=== PATIENT | female | born 1960 | race Caucasian/White ===

== ENCOUNTER 2017-01-15 20:18 | Emergency (ER) | payer BC ==
[~2017-01-15] VITALS: Ht 177.8 cm; Wt 93.0 kg
[~2017-01-15 20:18] MED LIST: HYDR-3534 PO; HYDR200T42 PO; IBUP600 PO; PERC5TAB12 PO; PRED10 PO; TYLE500T PO
[2017-01-15 20:23] VITALS: BP 170/110; PULSE 82; RESP 16; TEMP 98.2; O2SAT 99
--- NOTE | 2017-01-15 21:41 | PD ---
HPI Chief Complaint: Hypertension Time Seen by Provider: 21:28 Travel History International Travel<30 days: No Contact w/Intl Traveler<30days: No Traveled to known affect area: No History of Present Illness HPI 56-year-old female with history of hypertension here for evaluation of elevated blood pressure and headache. Patient reports that the symptoms have been going on for last 3 days. She noted that her blood pressure at home was in the 200s over 100s. In triage it is 170/110. She has tried taking Catapres at home from a leftover prescription without improvement in blood pressure. She reports that she used to take Micardis, Norvasc, and Inderal for hypertension, however has been out of these medications a while ago. 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 Headache is diffuse, pressure-like. The patient has history of subarachnoid hemorrhage and meningitis, but states that this headache is not nearly as bad as those and is manageable with Advil. No chest pain or dyspnea. No paresthesias or motor deficits. PFSH Past Medical History Arthritis: No Asthma: No Autoimmune Disease: No Blood Disorders: No Anxiety: No Depression: No Heart Rhythm Problems: No Cancer: No Cardiovascular Problems: Yes High Cholesterol: No Chemotherapy: No Chest Pain: No Congestive Heart Failure: No COPD: No Diabetes: No Diminished Hearing: No Endocrine: No GERD: No Glaucoma: No Genitourinary: Yes Headaches: Yes Hepatitis: No Hiatal Hernia: No Hypertension: Yes Immune Disorder: Yes (seronegative arthritis) Kidney Stones: Yes Musculoskeletal: No Neurologic: Yes (Subarrachnoid hemorrhage, ANEURYSM-16 years ago) Psychiatric: No Reproductive: Yes (ENDOMETRIAL ABLATION) Respiratory: No Migraines: Yes Myocardial Infarction: No Radiation Therapy: No Renal Failure: No Sickle Cell Disease: No Sleep Apnea: No Thyroid Disease: No Ulcer: No : 4 Para: 2 Miscarriage: 3 Tubal Ligation: Yes Past Surgical History Abdominal Surgery: Yes (CHOLECYSTECTOMY) AICD: No Appendectomy: No Arteriovenous Shunt: No Cardiac Surgery: No Section: Yes Cholecystectomy: Yes Genitourinary Surgery: No Gynecologic Surgery: Yes (ENDOMETRIAL ABLATION) Insulin Pump: No Joint Replacement: No Pacemaker: No Thoracic Surgery: Yes (THORACIC OUTLET) Other Surgery: Yes (THORACIC OUTLET) Social History Alcohol Use: No Tobacco Use: No Substance Use: No Allergies-Medications (Allergen,Severity, Reaction): Coded Allergies: Compazine (Verified Allergy, Severe, "Crawling out of skin, throat does not feel right", 01/15/17) Contrast Media (Verified Allergy, Severe, Swelling, 01/15/17) Flagyl (Verified Allergy, Severe, PEELS GI TRACT, 01/15/17) Nitroglycerin (Verified Allergy, Severe, RASH, 01/15/17) NITRO PASTE Reglan (Verified Allergy, Mild, SKIN / JAW IRRITATION, 01/15/17) Uncoded Allergies: ASPERTANE (Allergy, Severe, PEELS GI TRACT, 12/09/08) Reported Meds & Prescriptions Reported Meds & Active Scripts Active Amlodipine (Amlodipine Besylate) 10 Mg Tab 10 Mg PO DAILY Review of Systems Except as stated in HPI: all other systems reviewed are Neg Physical Exam Narrative GENERAL: Well-developed, well-nourished, comfortable, no acute distress. SKIN: Warm and dry. HEAD: Atraumatic. Normocephalic. EYES: Pupils equal, round, 3 mm, reactive to light. No scleral icterus. No injection or drainage. ENT: Mucous membranes pink and moist. NECK: Trachea midline. No JVD. No nuchal rigidity. CARDIOVASCULAR: Regular rate and rhythm. Distal pulses brisk and equal bilaterally. RESPIRATORY: No accessory muscle use. Clear to auscultation. Breath sounds equal bilaterally. GASTROINTESTINAL: Abdomen soft, non-tender, nondistended. MUSCULOSKELETAL: No obvious deformities. No clubbing. No cyanosis. No edema. NEUROLOGICAL: Awake and alert. No obvious cranial nerve deficits. Motor grossly within normal limits. Normal speech. No focal deficits. PSYCHIATRIC: Appropriate mood and affect; insight and judgment normal. Data Data Last Documented VS Vital Signs Date Time Temp Pulse Resp B/P Pulse Ox O2 Delivery O2 Flow Rate FiO2 01/15/17 23:35 77 18 164/83 99 Nasal Cannula 2 01/15/17 20:23 98.2 Orders Electrocardiogram (01/15/17 21:36) Complete Blood Count With Diff (01/15/17 21:36) Comprehensive Metabolic Panel (01/15/17 21:36) Prothrombin Time / Inr (Pt) (01/15/17 21:36) Act Partial Throm Time (Ptt) (01/15/17 21:36) Ecg Monitoring (01/15/17 21:36) Iv Access Insert/Monitor (01/15/17 21:36) Oximetry (01/15/17 21:36) Sodium Chloride 0.9% Flush (Ns Flush) (01/15/17 21:45) Acetaminophen (Tylenol) (01/15/17 21:45) Amlodipine (Norvasc) (01/15/17 21:45) Ct Brain W/O Iv Contrast(Rout) (01/15/17 ) Prochlorperazine Inj (Compazine Inj) (01/15/17 21:45) Diphenhydramine Inj (Benadryl Inj) (01/15/17 22:30) Potassium Chloride (Kcl) (01/15/17 22:30) Clonidine (Catapres) (01/15/17 22:45) Epinephrine (1:1000) Inj (Adrenalin (1:1 (01/15/17 22:42) Lorazepam Inj (Ativan Inj) (01/15/17 23:00) Epinephrine (1:1000) Inj (Adrenalin (1:1 (01/15/17 23:00) Labs Laboratory Tests Test 01/15/17 21:50 White Blood Count 11.4 TH/MM3 Red Blood Count 4.68 MIL/MM3 Hemoglobin 14.1 GM/DL Hematocrit 42.3 % Mean Corpuscular Volume 90.4 FL Mean Corpuscular Hemoglobin 30.2 PG Mean Corpuscular Hemoglobin 33.4 % Concent Red Cell Distribution Width 12.6 % Platelet Count 267 TH/MM3 Mean Platelet Volume 8.7 FL Neutrophils (%) (Auto) 66.3 % Lymphocytes (%) (Auto) 22.4 % Monocytes (%) (Auto) 6.0 % Eosinophils (%) (Auto) 4.8 % Basophils (%) (Auto) 0.5 % Neutrophils # (Auto) 7.5 TH/MM3 Lymphocytes # (Auto) 2.6 TH/MM3 Monocytes # (Auto) 0.7 TH/MM3 Eosinophils # (Auto) 0.5 TH/MM3 Basophils # (Auto) 0.1 TH/MM3 CBC Comment DIFF FINAL Differential Comment Prothrombin Time 10.3 SEC Prothromb Time International 0.9 RATIO Ratio Activated Partial 27.3 SEC Thromboplast Time Sodium Level 139 MEQ/L Potassium Level 3.3 MEQ/L Chloride Level 102 MEQ/L Carbon Dioxide Level 28.1 MEQ/L Anion Gap 9 MEQ/L Blood Urea Nitrogen 15 MG/DL Creatinine 0.65 MG/DL Estimat Glomerular Filtration 95 ML/MIN Rate Random Glucose 100 MG/DL Calcium Level 8.8 MG/DL Total Bilirubin 0.5 MG/DL Aspartate Amino Transf 25 U/L (AST/SGOT) Alanine Aminotransferase 38 U/L (ALT/SGPT) Alkaline Phosphatase 69 U/L Total Protein 7.3 GM/DL Albumin 3.9 GM/DL [facility] Medical Decision Making Medical Screen Exam Complete: Yes Emergency Medical Condition: Yes Medical Record Reviewed: Yes Interpretation(s) EKG: Sinus, rate 74, left axis deviation, normal intervals, poor R-wave progression, no acute ischemic abnormality. Differential Diagnosis Elevated blood pressure, hypertensive crisis unlikely, tension headache, cluster headache, migraine headache, SAH/meningitis/encephalitis unlikely Narrative Course Initial vital signs show heart rate 82, blood pressure 170/110, pulse ox 99% on room air, oral temp of 98.2F. CBC is unremarkable. CMP is remarkable for potassium 3.3, otherwise unremarkable. CT head: No acute intracranial process. The patient was given oral Tylenol and IV Compazine for her headache. Shortly after receiving the Compazine the patient reported that he felt as she was crawling out of her skin and she felt jittery. She was given 50 mg of IV Benadryl, and shortly after this she began to complain of difficulty breathing, funny sensation in her throat, and nausea. Given the symptoms, she was given 0.3 mg of IM epinephrine. There was no tongue or lip swelling. No drooling or stridor. On reassessment after receiving IM epinephrine, the patient seemed more anxious. She was given Ativan, and on reassessment she was sleeping comfortably. She will be observed in the emergency department. Repeat vital signs show blood pressure 160s over 80s with a heart rate in the 80s. Patient is sleeping comfortably on reassessment at midnight. At midnight at the end of my shift the patient was signed out to Dr. Gleason who will continue to observe the patient in the emergency department. If the patient is feeling well and has no more adverse events, she can likely be discharged home. She is not displaying any signs or symptoms of hypertensive crisis. Diagnosis Primary Impression: Elevated blood pressure reading Additional Impression: Adverse effects of medication Qualified Code: T88.7XXA - Adverse effects of medication, initial encounter Referrals: Primary Care Physician 3 days Scripts Amlodipine 10 Mg Tab10 Mg PO DAILY #30 TAB Ref 0 Prov:Kit Del Toro MD 01/15/17 Kit Del Toro MD Jan 15, 2017 21:41
[2017-01-15] MEDS ORDERED: ACETAMINOPHEN 325 MG TAB PO ONE (21:45)
[2017-01-15] MEDS ORDERED: PROCHLORPERAZINE INJ 10 MG/2 ML VIAL IVS ONE (21:45)
[2017-01-15] MEDS ORDERED: SODIUM CHLORIDE 0.9% FLUSH 5 ML FLUSH IVF PRN (21:45)
[2017-01-15 21:50] VITALS: O2SAT 99
[2017-01-15 22:00] VITALS: BP 181/107; PULSE 85; RESP 18; O2SAT 99
[2017-01-15 22:03] LABS: AUTOMATED NEUTROPHIL # 7.5 TH/MM3 (1.8-7.7); BASOPHIL # 0.1 TH/MM3 (0-0.2); BASOPHIL % 0.5 % (0.0-2.0); EOSINOPHIL # 0.5 TH/MM3 (0-0.4); EOSINOPHIL % 4.8 % (0.0-4.0); HEMATOCRIT 42.3 % (35.0-46.0); HEMO FLAGS DIFF FINAL; LYMPH % 22.4 % (9.0-44.0); LYMPHOCYTE # 2.6 TH/MM3 (1.0-4.8); MEAN CELL VOLUME 90.4 FL (80.0-100.0); MEAN CORPUSCULAR HEMOGLOBIN 30.2 PG (27.0-34.0); MEAN CORPUSCULAR HGB CONC 33.4 % (32.0-36.0); NEUT % 66.3 % (16.0-70.0); PLATELET COUNT 267 TH/MM3 (150-450); RED BLOOD COUNT 4.68 MIL/MM3 (4.00-5.30); RED CELL DISTRIBUTION WIDTH 12.6 % (11.6-17.2); WHITE BLOOD COUNT 11.4 TH/MM3 (4.0-11.0)
[2017-01-15 22:13] LABS: CHLORIDE 102 MEQ/L (98-107); POTASSIUM 3.3 MEQ/L (3.5-5.1); SODIUM (NA) 139 MEQ/L (136-145)
[2017-01-15 22:16] LABS: ANION GAP 9 MEQ/L (5-15); BICARBONATE 28.1 MEQ/L (21.0-32.0); BLOOD UREA NITROGEN 15 MG/DL (7-18)
[2017-01-15 22:19] LABS: APTT (PATIENT) 27.3 SEC (24.3-30.1); INTERNATIONAL NORMALIZED RATIO 0.9 RATIO; PROTHROMBIN TIME - PATIENT 10.3 SEC (9.8-11.6)
--- NOTE | 2017-01-15 22:19 | RADHPO ---
EXAM DATE/TIME: 01/15/2017 21:56 [facility] COMPARISON: CT BRAIN W/O CONTRAST, March 01, 2016, 20:09. INDICATIONS : Persistent headache and hypertension. RADIATION DOSE: 58.35 CTDIvol (mGy) MEDICAL HISTORY : Hypertension. Aneurysm, intracranial. SURGICAL HISTORY : Intracranial aneurysm repair. Subarachnoid hemorrhage. ENCOUNTER: Initial ACUITY: 3 days PAIN SCALE: 6/10 LOCATION: cranial TECHNIQUE: Multiple contiguous axial images were obtained of the head. Using automated exposure control and adj ustment of the mA and/or kV according to patient size, radiation dose was kept as low as reasonably a chievable to obtain optimal diagnostic quality images. FINDINGS: CEREBRUM: The ventricles are normal for age. No evidence of midline shift, mass lesion, hemorrhage or acute in farction. No extra-axial fluid collections are seen. POSTERIOR FOSSA: The cerebellum and brainstem are intact. The 4th ventricle is midline. The cerebellopontine angle i s unremarkable. EXTRACRANIAL: The visualized portion of the orbits is intact. SKULL: The calvaria is intact. No evidence of skull fracture. CONCLUSION: No acute intracranial disease. Abraham Ma MD on January 15, 2017 at 22:17 Board Certified Radiologist. This report was verified electronically.
[2017-01-15 22:20] LABS: ALT (GPT) 38 U/L (10-53); AST (GOT) 25 U/L (15-37); GLOMERULAR FILTRATION RATE 95 ML/MIN (>89)
[2017-01-15 22:22] LABS: TOTAL BILIRUBIN ADULT 0.5 MG/DL (0.2-1.0)
[2017-01-15 22:23] LABS: ALKALINE PHOSPHATASE 69 U/L (45-117)
[2017-01-15] MEDS ORDERED: diphenhydrAMINE HCL 50 MG/ML VIAL IV PUSH ONE (22:30)
[2017-01-15] MEDS ORDERED: POTASSIUM CHLORIDE 20 MEQ CONTROLLED RELEASE TAB PO ONE (22:30)
[2017-01-15] MEDS ORDERED: EPINEPHrine HCL (1:1000) 1 MG/ML VIAL ONE (22:42)
[2017-01-15 22:45] VITALS: O2SAT 99
[2017-01-15] MEDS ORDERED: cloNIDine HCL 0.1 MG TAB PO ONE (22:45)
[2017-01-15] MEDS ORDERED: LORazepam 2 MG/ML VIAL IV PUSH ONE (23:00)
[2017-01-15] MEDS ORDERED: EPINEPHrine HCL (1:1000) 1 MG/ML VIAL IM ONE (23:00)
[2017-01-15 23:03] VITALS: BP 176/94; PULSE 79; RESP 20; O2SAT 99
[2017-01-15] MEDS ORDERED: AMLO10TA2 PO (23:18)
[2017-01-15 23:35] VITALS: BP 164/83; PULSE 77; RESP 18; O2SAT 99
[2017-01-16 00:45] VITALS: BP 168/89; PULSE 80; RESP 18; O2SAT 100
[2017-01-16 01:00] VITALS: O2SAT 97
--- NOTE | 2017-01-16 01:21 | PD ---
Physical Exam Time Seen by Provider: 01:[address] Del Toro left this patient with me to make sure the patient's symptoms resolved satisfactorily. Data Data Last Documented VS Vital Signs Date Time Temp Pulse Resp B/P Pulse Ox O2 Delivery O2 Flow Rate FiO2 01/16/17 00:45 80 18 168/89 100 Nasal Cannula 1 01/15/17 20:23 98.2 Orders Electrocardiogram (01/15/17 21:36) Complete Blood Count With Diff (01/15/17 21:36) Comprehensive Metabolic Panel (01/15/17 21:36) Prothrombin Time / Inr (Pt) (01/15/17 21:36) Act Partial Throm Time (Ptt) (01/15/17 21:36) Ecg Monitoring (01/15/17 21:36) Iv Access Insert/Monitor (01/15/17 21:36) Oximetry (01/15/17 21:36) Sodium Chloride 0.9% Flush (Ns Flush) (01/15/17 21:45) Acetaminophen (Tylenol) (01/15/17 21:45) Amlodipine (Norvasc) (01/15/17 21:45) Ct Brain W/O Iv Contrast(Rout) (01/15/17 ) Prochlorperazine Inj (Compazine Inj) (01/15/17 21:45) Diphenhydramine Inj (Benadryl Inj) (01/15/17 22:30) Potassium Chloride (Kcl) (01/15/17 22:30) Clonidine (Catapres) (01/15/17 22:45) Epinephrine (1:1000) Inj (Adrenalin (1:1 (01/15/17 22:42) Lorazepam Inj (Ativan Inj) (01/15/17 23:00) Epinephrine (1:1000) Inj (Adrenalin (1:1 (01/15/17 23:00) Labs Laboratory Tests Test 01/15/17 21:50 White Blood Count 11.4 TH/MM3 Red Blood Count 4.68 MIL/MM3 Hemoglobin 14.1 GM/DL Hematocrit 42.3 % Mean Corpuscular Volume 90.4 FL Mean Corpuscular Hemoglobin 30.2 PG Mean Corpuscular Hemoglobin 33.4 % Concent Red Cell Distribution Width 12.6 % Platelet Count 267 TH/MM3 Mean Platelet Volume 8.7 FL Neutrophils (%) (Auto) 66.3 % Lymphocytes (%) (Auto) 22.4 % Monocytes (%) (Auto) 6.0 % Eosinophils (%) (Auto) 4.8 % Basophils (%) (Auto) 0.5 % Neutrophils # (Auto) 7.5 TH/MM3 Lymphocytes # (Auto) 2.6 TH/MM3 Monocytes # (Auto) 0.7 TH/MM3 Eosinophils # (Auto) 0.5 TH/MM3 Basophils # (Auto) 0.1 TH/MM3 CBC Comment DIFF FINAL Differential Comment Prothrombin Time 10.3 SEC Prothromb Time International 0.9 RATIO Ratio Activated Partial 27.3 SEC Thromboplast Time Sodium Level 139 MEQ/L Potassium Level 3.3 MEQ/L Chloride Level 102 MEQ/L Carbon Dioxide Level 28.1 MEQ/L Anion Gap 9 MEQ/L Blood Urea Nitrogen 15 MG/DL Creatinine 0.65 MG/DL Estimat Glomerular Filtration 95 ML/MIN Rate Random Glucose 100 MG/DL Calcium Level 8.8 MG/DL Total Bilirubin 0.5 MG/DL Aspartate Amino Transf 25 U/L (AST/SGOT) Alanine Aminotransferase 38 U/L (ALT/SGPT) Alkaline Phosphatase 69 U/L Total Protein 7.3 GM/DL Albumin 3.9 GM/DL MDM Medical Record Reviewed: Yes Supervised Visit with NATALIO: Yes Differential Diagnosis Allergic reaction, hypertensive encephalopathy, anxiety, blood pressure poor control, adverse medication reaction Narrative Course It is now 118 and the patient is alert, oriented 3 with no respirator distress. The blood pressure is 168/89. The patient wants to go home. There is no evidence of hypertensive encephalopathy. Diagnosis Primary Impression: Elevated blood pressure reading Additional Impression: Adverse effects of medication Qualified Code: T88.7XXA - Adverse effects of medication, initial encounter Referrals: Primary Care Physician 3 days Additional Instruction: Dr. Del Toro wrote a prescription for amlodipine for the patient. She is to follow -up with her primary care physician. She should see her physician this week or , hopefully, early next week. Med/Other Pt SpecificInfo: Prescription(s) given Scripts Amlodipine 10 Mg Tab10 Mg PO DAILY #30 TAB Ref 0 Prov:Kit Del Toro MD 01/15/17 Disposition: 01 DISCHARGE HOME Condition: Stable Juan Francisco Gleason MD Jan 16, 2017 01:21
[2017-01-16 01:36] VITALS: BP 172/96
--- NOTE | 2017-01-16 10:51 | EKG ---
Date Performed: 01/15/2017 Time Performed: 21:43:06 PTAGE: 56 years EKG: Sinus rhythm Poor R wave progression - probable normal variant Borderline ECG PREVIOUS TRACING : 12/09/2008 19.39 Compared to prior tracing no significant change DOCTOR: Moris Sandhu Interpretating Date/Time 01/16/2017 10:50:20
== END 2017-01-16 01:40 | disposition home or self-care (01) ==
LOC: PHED 20:18
DX: I10 Essential (primary) hypertension (principal); T43.3X5A Adverse effect of phenothiazine antipsychotics and neuroleptics, initial encounter; R51 Headache
CPT/HCPCS: 70450; 80053; 85025; 85610; 85730; 93005; 96372; 96374; 96375; 99284; J0171; J0780; J1200; J2060

== ENCOUNTER 2017-08-07 13:56 | Observation (INO) | payer BC ==
[~2017-08-07] VITALS: Ht 172.7 cm; Wt 93.7 kg
[2017-08-07] VITALS (8 sets, daily range): BP systolic 128–195; BP diastolic 88–123; PULSE 65–93; RESP 16–20; TEMP 97–99; O2SAT 96–98
[~2017-08-07 13:56] MED LIST changes: +AMLO10TA2 PO; -HYDR-3534 PO; -HYDR200T42 PO; -IBUP600 PO; -PERC5TAB12 PO; -PRED10 PO; -TYLE500T PO
[2017-08-07] MEDS ORDERED: AMLO10 PO (14:33)
[2017-08-07] MEDS ORDERED: SODIUM CHLORIDE 0.9% FLUSH 10 ML FLUSH IVF PRN (14:45)
[2017-08-07] MEDS ORDERED: ASPIRIN 325 MG TAB PO ONE (14:45)
[2017-08-07] MEDS ORDERED: cloNIDine HCL 0.2 MG TAB PO ONE (14:45)
--- NOTE | 2017-08-07 14:51 | PD ---
HPI Chief Complaint: Chest Pain Time Seen by Provider: 14:32 Travel History International Travel<30 days: No Contact w/Intl Traveler<30days: No Traveled to known affect area: No History of Present Illness HPI The patient was seen and examined in the presence of the nurse. Patient complains of a pressure and fluttering in her chest. Location is center sternum. Duration one day. Symptoms severity is moderate. No alleviating factors. Patient has been under a lot of stress lately over the recent of her son. She had a stress test many years ago but nothing recently. She has hypertension and cannot recall if she took her medication today. Blood pressure is approximately 200/120. Denies significant headache. No syncope. her stress is exacerbating her symptoms. PFSH Past Medical History Arthritis: No Asthma: No Autoimmune Disease: No Blood Disorders: No Anxiety: No Depression: No Heart Rhythm Problems: No Cancer: No Cardiovascular Problems: Yes High Cholesterol: No Chemotherapy: No Chest Pain: No Congestive Heart Failure: No COPD: No Diabetes: No Diminished Hearing: No Endocrine: No GERD: No Glaucoma: No Genitourinary: Yes (Ileus) Headaches: Yes Hepatitis: No Hiatal Hernia: No Hypertension: Yes Immune Disorder: Yes (seronegative arthritis) Kidney Stones: Yes Musculoskeletal: No Neurologic: Yes (Subarrachnoid hemorrhage, ANEURYSM-16 years ago) Psychiatric: No Reproductive: Yes (ENDOMETRIAL ABLATION) Respiratory: No Migraines: Yes Myocardial Infarction: No Radiation Therapy: No Renal Failure: No Sickle Cell Disease: No Sleep Apnea: No Thyroid Disease: No Ulcer: No : 4 Para: 2 Miscarriage: 3 Tubal Ligation: Yes Past Surgical History Abdominal Surgery: Yes (CHOLECYSTECTOMY) AICD: No Appendectomy: No Arteriovenous Shunt: No Cardiac Surgery: No Section: Yes Cholecystectomy: Yes Genitourinary Surgery: No Gynecologic Surgery: Yes (ENDOMETRIAL ABLATION) Insulin Pump: No Joint Replacement: No Pacemaker: No Thoracic Surgery: Yes (THORACIC OUTLET) Other Surgery: Yes (THORACIC OUTLET, Lumpectomy on the left side.) Social History Alcohol Use: No Tobacco Use: No Substance Use: No Allergies-Medications (Allergen,Severity, Reaction): Coded Allergies: diatrizoate meglumine (Verified Allergy, Severe, Swelling, 08/07/17) 07-22-2017 during appt confirmed. gadobenic acid (Verified Allergy, Severe, Swelling, 08/07/17) 07-22-2017 during appt confirmed. gadodiamide (Verified Allergy, Severe, Swelling, 08/07/17) 07-22-2017 during appt confirmed. gadoteridol (Verified Allergy, Severe, Swelling, 08/07/17) 07-22-2017 during appt confirmed. iodixanol (Verified Allergy, Severe, Swelling, 08/07/17) 07-22-2017 during appt confirmed. iohexol (Verified Allergy, Severe, Swelling, 08/07/17) 07-22-2017 during appt confirmed. metronidazole (Verified Allergy, Severe, PEELS GI TRACT, 08/07/17) 07-22-2017 during appt confirmed. nitroglycerin (Verified Allergy, Severe, RASH, 08/07/17) NITRO PASTE 07-22-2017 during appt confirmed. prochlorperazine (Verified Allergy, Severe, "Crawling out of skin, throat does not feel right", 08/07/17) 07-22-2017 during appt confirmed. metoclopramide (Verified Allergy, Mild, SKIN / JAW IRRITATION, 08/07/17) 07-22-2017 during appt confirmed. Uncoded Allergies: ASPERTANE (Allergy, Severe, PEELS GI TRACT, 12/09/08) Reported Meds & Prescriptions Reported Meds & Active Scripts Active Amlodipine (Amlodipine Besylate) 10 Mg Tab 10 Mg PO DAILY Review of Systems General / Constitutional: No: Fever Eyes: No: Visual changes HENT: No: Headaches Cardiovascular: Positive: Chest Pain or Discomfort, Palpitations Respiratory: No: Shortness of Breath Gastrointestinal: No: Abdominal Pain Genitourinary: No: Dysuria Musculoskeletal: No: Pain Skin: No Rash Neurologic: No: Weakness Psychiatric: Positive: Anxiety, Depression Endocrine: No: Polydipsia Hematologic/Lymphatic: No: Easy Bruising Physical Exam Narrative GENERAL: Well-nourished, well-developed patient with chest pressure and fluttering . SKIN: Focused skin assessment reveals no rash and nodules. Skin is Warm and dry. HEAD: Atraumatic. Normocephalic. EYES: Pupils equal and round. No scleral icterus. No injection or drainage. ENT: No nasal bleeding or discharge. Mucous membranes pink and moist. NECK: Trachea midline. No JVD. CARDIOVASCULAR: Regular rate and rhythm. No murmur appreciated. RESPIRATORY: No accessory muscle use. Clear to auscultation. Breath sounds equal bilaterally. GASTROINTESTINAL: Abdomen soft, non-tender, nondistended. Hepatic and splenic margins not palpable. MUSCULOSKELETAL: No obvious deformities. No clubbing. No cyanosis. No edema. NEUROLOGICAL: Awake and alert. No obvious cranial nerve deficits. Motor grossly within normal limits. Normal speech. PSYCHIATRIC: Depressed mood and flat affect; insight and judgment normal. Data Data Last Documented VS Vital Signs Date Time Temp Pulse Resp B/P (MAP) Pulse Ox O2 Delivery O2 Flow Rate FiO2 08/07/17 15:52 70 16 153/95 (114) 97 Room Air 2.00 08/07/17 14:19 99.0 Orders Orders Electrocardiogram (08/07/17 14:40) Basic Metabolic Panel (Bmp) (08/07/17 14:40) Ckmb (Isoenzyme) Profile (08/07/17 14:40) Complete Blood Count With Diff (08/07/17 14:40) Magnesium (Mg) (08/07/17 14:40) Prothrombin Time / Inr (Pt) (08/07/17 14:40) Act Partial Throm Time (Ptt) (08/07/17 14:40) Troponin I (08/07/17 14:40) Chest, Single Ap (08/07/17 14:40) Ecg Monitoring (08/07/17 14:40) Iv Access Insert/Monitor (08/07/17 14:40) Oximetry (08/07/17 14:40) Aspirin (Aspirin) (08/07/17 14:45) Sodium Chloride 0.9% Flush (Ns Flush) (08/07/17 14:45) Clonidine (Catapres) (08/07/17 14:45) Labs Laboratory Tests Test 08/07/17 14:40 White Blood Count 8.1 TH/MM3 Red Blood Count 4.62 MIL/MM3 Hemoglobin 13.9 GM/DL Hematocrit 40.9 % Mean Corpuscular Volume 88.6 FL Mean Corpuscular Hemoglobin 30.0 PG Mean Corpuscular Hemoglobin Concent 33.9 % Red Cell Distribution Width 12.1 % Platelet Count 276 TH/MM3 Mean Platelet Volume 9.2 FL Neutrophils (%) (Auto) 64.1 % Lymphocytes (%) (Auto) 25.3 % Monocytes (%) (Auto) 6.4 % Eosinophils (%) (Auto) 3.4 % Basophils (%) (Auto) 0.8 % Neutrophils # (Auto) 5.2 TH/MM3 Lymphocytes # (Auto) 2.0 TH/MM3 Monocytes # (Auto) 0.5 TH/MM3 Eosinophils # (Auto) 0.3 TH/MM3 Basophils # (Auto) 0.1 TH/MM3 CBC Comment DIFF FINAL Differential Comment Prothrombin Time 10.0 SEC Prothromb Time International Ratio 0.9 RATIO Activated Partial Thromboplast Time 27.9 SEC Blood Urea Nitrogen 9 MG/DL Creatinine 0.63 MG/DL Random Glucose 94 MG/DL Calcium Level 9.3 MG/DL Magnesium Level 2.0 MG/DL Sodium Level 137 MEQ/L Potassium Level 3.7 MEQ/L Chloride Level 101 MEQ/L Carbon Dioxide Level 29.7 MEQ/L Anion Gap 6 MEQ/L Estimat Glomerular Filtration Rate 98 ML/MIN Total Creatine Kinase 46 U/L Troponin I LESS THAN 0.02 NG/ML MDM Medical Decision Making Medical Screen Exam Complete: Yes Emergency Medical Condition: Yes Medical Record Reviewed: Yes Differential Diagnosis Differential diagnosis includes MD, angina, pericarditis, pleurisy, GERD, anxiety., Hypertensive urgency Narrative Course I have reviewed the patient's electronic medical record. Patient was here in January 2017 for accelerated hypertension IV placed I reviewed the EKG which shows sinus rhythm but no ST elevation or ectopy I reviewed the chest x-ray which is normal Extended cardiac monitoring shows sinus rhythm without ectopy CBC is normal Metabolic profile is normal CK is normal Troponin is normal are normal Coagulation studies Gave her an aspirin and a dose of clonidine for accelerated hypertension Patient is neurologically intact without neurologic complaint. Repeat blood pressure 153/90 Patient having chest discomfort and has multiple risk factors. She will be a 23 hour observation on telemetry in the chest pain center to rule out cardiac cause of her symptoms. I paged the hospitalist to discuss. Diagnosis Primary Impression: Chest pain in adult Admitting Information Admitting Physician Requests: Observation Kt Nicholson MD Aug 07, 2017 14:51
[2017-08-07 14:59] LABS: AUTOMATED NEUTROPHIL # 5.2 TH/MM3 (1.8-7.7); BASOPHIL # 0.1 TH/MM3 (0-0.2); BASOPHIL % 0.8 % (0.0-2.0); EOSINOPHIL # 0.3 TH/MM3 (0-0.4); EOSINOPHIL % 3.4 % (0.0-4.0); HEMATOCRIT 40.9 % (35.0-46.0); HEMO FLAGS DIFF FINAL; LYMPH % 25.3 % (9.0-44.0); MEAN CELL VOLUME 88.6 FL (80.0-100.0); MEAN CORPUSCULAR HGB CONC 33.9 % (32.0-36.0); MONO % 6.4 % (0.0-8.0); NEUT % 64.1 % (16.0-70.0); PLATELET COUNT 276 TH/MM3 (150-450); RED BLOOD COUNT 4.62 MIL/MM3 (4.00-5.30); RED CELL DISTRIBUTION WIDTH 12.1 % (11.6-17.2); WHITE BLOOD COUNT 8.1 TH/MM3 (4.0-11.0)
[2017-08-07 15:07] LABS: CHLORIDE 101 MEQ/L (98-107); POTASSIUM 3.7 MEQ/L (3.5-5.1); SODIUM (NA) 137 MEQ/L (136-145)
[2017-08-07 15:10] LABS: ANION GAP 6 MEQ/L (5-15); BICARBONATE 29.7 MEQ/L (21.0-32.0); BLOOD UREA NITROGEN 9 MG/DL (7-18)
[2017-08-07 15:12] LABS: APTT (PATIENT) 27.9 SEC (24.3-30.1); INTERNATIONAL NORMALIZED RATIO 0.9 RATIO
[2017-08-07 15:13] LABS: GLOMERULAR FILTRATION RATE 98 ML/MIN (>89)
[2017-08-07 15:20] LABS: CREATINE KINASE 46 U/L (26-192)
--- NOTE | 2017-08-07 15:36 | RADRPT ---
EXAM DATE/TIME: 08/07/2017 15:09 [facility] COMPARISON: No previous studies available for comparison. INDICATIONS : Chest pain starting this morning. MEDICAL HISTORY : Aneurysm, intracranial. Hypertension SURGICAL HISTORY : Tubal ligation. ENCOUNTER: Initial ACUITY: 1 day PAIN SCORE: 7/10 LOCATION: Bilateral chest FINDINGS: A single view of the chest demonstrates the lungs to be symmetrically aerated without evidence of mas s, infiltrate or effusion. The cardiomediastinal contours are unremarkable. Osseous structures are intact. CONCLUSION: No acute disease. Gokul Horn MD on August 07, 2017 at 15:35 Board Certified Radiologist. This report was verified electronically.
[2017-08-07] MEDS ORDERED: ONDANSETRON HCL 4 MG/2 ML VIAL IVP PRN (16:45)
[2017-08-07] MEDS ORDERED: MAGNESIUM HYDROXIDE SUSP 30 ML CUP PO PRN (16:45)
[2017-08-07] MEDS ORDERED: MORPHINE SULFATE 4 MG/ML INJ IV PUSH PRN ×2 (16:45)
[2017-08-07] MEDS ORDERED: NALOXONE HCL 0.4 MG/ML AMP IV PUSH PRN (16:45)
[2017-08-07] MEDS ORDERED: SODIUM CHLORIDE 0.9% FLUSH 10 ML FLUSH IV FLUSH PRN (16:45)
--- NOTE | 2017-08-07 16:53 | HHI.HP ---
[facility] Primary Care Physician No Primary Care Physician Admission Diagnosis chest pain Diagnoses: (1) Hypertensive urgency Diagnosis: Principal (2) Chest pain in adult Diagnosis: Principal Travel History International Travel<30 Days: No Contact w/Intl Traveler <30 Da: No Traveled to Known Affected Are: No History of Present Illness Mrs. Ramos is a 56-year-old female. She is here today after having chest pain earlier today. For the past week she's been having palpitations off and on. Today, however, she had acute sharp pains at her right arm and center chest. Some of the pain radiated up to her right jaw. 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 She does have coronary artery disease in her family history including her father and paternal grandmother. Other possible contributors are a history of autoimmunity which include seronegative arthritis and spondylolysis and a recent loss of her son (acute grief). No chest pain is present during our interview. She's had no neurologic changes. Review of Systems Constitutional: DENIES: Fatigue, Fever, Weight loss, Chills Eyes: DENIES: Blurred vision, Diplopia, Eye inflammation, Vision loss Ears, nose, mouth, throat: DENIES: Tinnitus, Hearing loss, Vertigo Cardiovascular: COMPLAINS OF: Chest pain, DENIES: Palpitations, Syncope Gastrointestinal: DENIES: Abdominal pain, Black stools, Bloody stools Musculoskeletal: DENIES: Joint pain, Muscle aches, Stiffness Integumentary: DENIES: Abnormal pigmentation, Pruritus, Rash Hematologic/lymphatic: DENIES: Bruising, Lymphadenopathy Immunologic/allergic: DENIES: Eczema, Urticaria Neurologic: DENIES: Abnormal gait, Headache, Localized weakness, Paresthesias Psychiatric: DENIES: Anxiety, Confusion, Hallucinations Past Family Social History Past Medical History Hypertension History of migraine headaches History of ileus History of subarachnoid hemorrhage secondary to aneurysm in 2000 Seronegative Arthritis History of menometrorrhagia History of hypertensive urgency Spondylolysis Past Surgical History Cholecystectomy Thoracic outlet lumpectomy Endometrial ablation Right wrist surgery Reported Medications Reported Meds & Active Scripts Active Amlodipine (Amlodipine Besylate) 10 Mg Tab 10 Mg PO DAILY Allergies: Coded Allergies: diatrizoate meglumine (Verified Allergy, Severe, Swelling, 08/07/17) 07-22-2017 during appt confirmed. gadobenic acid (Verified Allergy, Severe, Swelling, 08/07/17) 07-22-2017 during appt confirmed. gadodiamide (Verified Allergy, Severe, Swelling, 08/07/17) 07-22-2017 during appt confirmed. gadoteridol (Verified Allergy, Severe, Swelling, 08/07/17) 07-22-2017 during appt confirmed. iodixanol (Verified Allergy, Severe, Swelling, 08/07/17) 07-22-2017 during appt confirmed. iohexol (Verified Allergy, Severe, Swelling, 08/07/17) 07-22-2017 during appt confirmed. metronidazole (Verified Allergy, Severe, PEELS GI TRACT, 08/07/17) 07-22-2017 during appt confirmed. nitroglycerin (Verified Allergy, Severe, RASH, 08/07/17) NITRO PASTE 07-22-2017 during appt confirmed. prochlorperazine (Verified Allergy, Severe, "Crawling out of skin, throat does not feel right", 08/07/17) 07-22-2017 during appt confirmed. metoclopramide (Verified Allergy, Mild, SKIN / JAW IRRITATION, 08/07/17) 07-22-2017 during appt confirmed. Uncoded Allergies: ASPERTANE (Allergy, Severe, PEELS GI TRACT, 12/09/08) Social History No alcohol abuse No smoking No illicit drug abuse Physical Exam Vital Signs Vital Signs Date Time Temp Pulse Resp B/P (MAP) Pulse Ox O2 Delivery O2 Flow Rate FiO2 08/07/17 15:52 70 16 153/95 (114) 97 Room Air 2.00 08/07/17 14:52 96 Room Air 08/07/17 14:40 98 Room Air 08/07/17 14:19 99.0 93 16 195/123 (147) 98 Physical Exam GENERAL: NAD, A&Ox3 HEAD: Normocephalic. NECK: Supple, trachea midline. No lymphadenopathy. EYES: No scleral icterus. No injection or drainage. CARDIOVASCULAR: Regular rate and rhythm without murmurs, gallops, or rubs. RESPIRATORY: Breath sounds equal bilaterally. No accessory muscle use. GASTROINTESTINAL: Abdomen soft, non-tender, nondistended. MUSCULOSKELETAL: No cyanosis, or edema. SKIN: Warm and dry. NEURO: No focal neurological deficitis. Laboratory Laboratory Tests Test 08/07/17 14:40 White Blood Count 8.1 Red Blood Count 4.62 Hemoglobin 13.9 Hematocrit 40.9 Mean Corpuscular Volume 88.6 Mean Corpuscular Hemoglobin 30.0 Mean Corpuscular Hemoglobin Concent 33.9 Red Cell Distribution Width 12.1 Platelet Count 276 Mean Platelet Volume 9.2 Neutrophils (%) (Auto) 64.1 Lymphocytes (%) (Auto) 25.3 Monocytes (%) (Auto) 6.4 Eosinophils (%) (Auto) 3.4 Basophils (%) (Auto) 0.8 Neutrophils # (Auto) 5.2 Lymphocytes # (Auto) 2.0 Monocytes # (Auto) 0.5 Eosinophils # (Auto) 0.3 Basophils # (Auto) 0.1 CBC Comment DIFF FINAL Differential Comment Prothrombin Time 10.0 Prothromb Time International Ratio 0.9 Activated Partial Thromboplast Time 27.9 Blood Urea Nitrogen 9 Creatinine 0.63 Random Glucose 94 Calcium Level 9.3 Magnesium Level 2.0 Sodium Level 137 Potassium Level 3.7 Chloride Level 101 Carbon Dioxide Level 29.7 Anion Gap 6 Estimat Glomerular Filtration Rate 98 Total Creatine Kinase 46 Troponin I LESS THAN 0.02 Result Diagram: 08/07/17 1440 08/07/17 1440 Caprini VTE Risk Assessment Caprini VTE Risk Assessment: No/Low Risk (score <= 1) Caprini Risk Assessment Model Point Value = 1 Point Value = 2 Point Value = 3 Point Value = 5 Age 41-60 Minor surgery BMI > 25 kg/m2 Swollen legs Varicose veins or History of unexplained or recurrent spontaneous Oral contraceptives or hormone replacement Sepsis (< 1 month) Serious lung disease, including pneumonia (< 1 month) Abnormal pulmonary function Acute myocardial infarction Congestive heart failure (< 1 month) History of inflammatory bowel disease Medical patient at bed rest Age 61-74 Arthroscopic surgery Major open surgery (> 45 min) Laparoscopic surgery (> 45 min) Malignancy Confined to bed (> 72 hours) Immobilizing plaster cast Central venous access Age >= 75 History of VTE Family history of VTE Factor V Leiden Prothrombin [id number] Lupus anticoagulant Anticardiolipin antibodies Elevated serum homocysteine Heparin-induced thrombocytopenia Other congenital or acquired thrombophilia Stroke (< 1 month) Elective arthroplasty Hip, pelvis, or leg fracture Acute spinal cord injury (< 1 month) Prophylaxis Regimen Total Risk Factor Score Risk Level Prophylaxis Regimen 0-1 Low Early ambulation 2 Moderate Order ONE of the following: *Sequential Compression Device (SCD) *Heparin 5000 units SQ BID 3-4 Higher Order ONE of the following medications: *Heparin 5000 units SQ TID *Enoxaparin/Lovenox 40 mg SQ daily (WT < 150 kg, CrCl > 30 mL/min) *Enoxaparin/Lovenox 30 mg SQ daily (WT < 150 kg, CrCl > 10-29 mL/min) *Enoxaparin/Lovenox 30 mg SQ BID (WT < 150 kg, CrCl > 30 mL/min) AND/OR *Sequential Compression Device (SCD) 5 or more Highest Order ONE of the following medications: *Heparin 5000 units SQ TID (Preferred with Epidurals) *Enoxaparin/Lovenox 40 mg SQ daily (WT < 150 kg, CrCl > 30 mL/min) *Enoxaparin/Lovenox 30 mg SQ daily (WT < 150 kg, CrCl > 10-29 mL/min) *Enoxaparin/Lovenox 30 mg SQ BID (WT < 150 kg, CrCl > 30 mL/min) AND *Sequential Compression Device (SCD) Assessment and Plan Problem List: (1) Chest pain in adult ICD Code: R07.9 - Chest pain, unspecified Status: Acute (2) Hypertensive urgency ICD Code: I16.0 - Hypertensive urgency Assessment and Plan Assessment and plan 56-year-old female admitted secondary to symptoms of chest pain and hypertensive urgency Chest pain Evaluate for ACS Follow cardiac enzymes When necessary oxygen When necessary morphine for pain. Avoid aspirin secondary to history of spontaneous subarachnoid hemorrhage Avoid nitroglycerin secondary to allergy Follow on telemetry Following chest pain center Lipid profile in a.m. Hypertensive urgency on hypertension As needed clonidine As needed IV enalapril Continue baseline amlodipine This condition may be contributory to the patient's chest pain Acute grief Recent loss of some Supportive care Arthritis Follow clinically History of migraine headaches Follow clinically History of subarachnoid hemorrhage Avoid blood thinners DVT prophylaxis SCDs Ayan Aldrich MD Aug 07, 2017 16:53
[2017-08-07] MEDS ORDERED: ENOXAPARIN SODIUM 40 MG/0.4 ML SYRINGE SQ SCH (17:00)
[2017-08-07] MEDS: SODIUM CHLORIDE 0.9% FLUSH 10 ML FLUSH IV FLUSH SCH (20:10)
[2017-08-08 04:00] VITALS: BP 117/77; PULSE 63; RESP 18; TEMP 96.9; O2SAT 95
[2017-08-08 07:44] LABS: CHLORIDE 103 MEQ/L (98-107); POTASSIUM 3.5 MEQ/L (3.5-5.1); SODIUM (NA) 139 MEQ/L (136-145)
[2017-08-08 07:47] LABS: ANION GAP 7 MEQ/L (5-15); BLOOD UREA NITROGEN 11 MG/DL (7-18)
[2017-08-08 07:50] LABS: ALT (GPT) 14 U/L (10-53); AST (GOT) 12 U/L (15-37); AUTOMATED NEUTROPHIL # 3.9 TH/MM3 (1.8-7.7); BASOPHIL % 0.7 % (0.0-2.0); EOSINOPHIL # 0.3 TH/MM3 (0-0.4); GLOMERULAR FILTRATION RATE 93 ML/MIN (>89); HEMATOCRIT 38.4 % (35.0-46.0); HEMO FLAGS DIFF FINAL; LYMPH % 33.2 % (9.0-44.0); LYMPHOCYTE # 2.3 TH/MM3 (1.0-4.8); MEAN CELL VOLUME 89.1 FL (80.0-100.0); MEAN CORPUSCULAR HEMOGLOBIN 29.9 PG (27.0-34.0); MEAN CORPUSCULAR HGB CONC 33.5 % (32.0-36.0); MONO % 6.1 % (0.0-8.0); PLATELET COUNT 240 TH/MM3 (150-450); RED CELL DISTRIBUTION WIDTH 12.4 % (11.6-17.2); WHITE BLOOD COUNT 6.9 TH/MM3 (4.0-11.0)
[2017-08-08 07:52] LABS: TOTAL BILIRUBIN ADULT 0.6 MG/DL (0.2-1.0)
[2017-08-08 07:53] LABS: ALKALINE PHOSPHATASE 67 U/L (45-117)
[2017-08-08 08:28] VITALS: BP 129/83; PULSE 67; RESP 18; TEMP 97.6; O2SAT 96
[2017-08-08] MEDS: SODIUM CHLORIDE 0.9% FLUSH 10 ML FLUSH IV FLUSH SCH (09:00)
[2017-08-08 09:36] LABS: HDL CHOLESTEROL 69.7 MG/DL (40.0-60.0); LDL CHOLESTEROL 110 MG/DL (0-99)
--- NOTE | 2017-08-08 11:58 | HHI.DS ---
Discharge Summary Admission Date Aug 07, 2017 at 16:06 Discharge Date: Aug 08, 2017 Admitting Diagnosis chest pain (1) Chest pain in adult ICD Code: R07.9 - Chest pain, unspecified Status: Acute (2) Hypertensive urgency ICD Code: I16.0 - Hypertensive urgency Procedures Treadmill stress test Brief History - From Admission Mrs. Ramos is a 56-year-old female. She is here today after having chest pain earlier today. For the past week she's been having palpitations off and on. Today, however, she had acute sharp pains at her right arm and center chest. Some of the pain radiated up to her right jaw. 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 She does have coronary artery disease in her family history including her father and paternal grandmother. Other possible contributors are a history of autoimmunity which include seronegative arthritis and spondylolysis and a recent loss of her son (acute grief). No chest pain is present during our interview. She's had no neurologic changes. CBC/BMP: 08/08/17 0705 08/08/17 0705 Significant Findings Laboratory Tests Test 08/07/17 14:40 08/07/17 20:30 08/08/17 00:15 08/08/17 03:10 Troponin I LESS THAN 0.02 NG/ML LESS THAN 0.02 NG/ML LESS THAN 0.02 NG/ML LESS THAN 0.02 NG/ML Test 08/08/17 07:05 Eosinophils (%) (Auto) 5.0 % (0.0-4.0) Aspartate Amino Transf (AST/SGOT) 12 U/L (15-37) Troponin I LESS THAN 0.02 NG/ML Triglycerides Level 156 MG/DL (42-150) Cholesterol Level 211 MG/DL (120-200) LDL Cholesterol 110 MG/DL (0-99) HDL Cholesterol 69.7 MG/DL (40.0-60.0) Hospital Course Mrs. Ramos is a 56 old female. She was admitted secondary to chest pain. Family history coronary artery disease is present. Workup included cardiac enzyme monitoring, EKGs, and general stress testing. All workup was within normal limits. Patient's chest pain has completely resolved. LDL cholesterol level was 110. This is discussed with the patient. She has tried statins in the past and these made her feel ill. She has no interest in statins. She feels back to baseline today. Medically stable for discharge home today. Pt Condition on Discharge: Stable Discharge Disposition: Discharge Home Discharge Time: <= 30 minutes Discharge Instructions DIET: Follow Instructions for: As Tolerated, No Restrictions Activities you can perform: Regular-No Restrictions Ayan Aldrich MD Aug 08, 2017 11:58
--- NOTE | 2017-08-08 13:45 | EKG ---
Date Performed: 08/08/2017 Time Performed: 03:05:15 PTAGE: 56 years EKG: Sinus rhythm NORMAL ECG PREVIOUS TRACING : 08/07/2017 23.50 Since previous tracing, no significant change noted DOCTOR: Jhonny Winchester Interpretating Date/Time 08/08/2017 13:45:21
--- NOTE | 2017-08-08 13:48 | EKG ---
Date Performed: 08/07/2017 Time Performed: 23:50:22 PTAGE: 56 years EKG: Sinus rhythm WITH OCCASIONAL SUPRAVENTRICULAR PREMATURE COMPLEXES BORDERLINE ECG PREVIOUS TRACING : 08/07/2017 20.27 Since previous tracing, no significant change noted DOCTOR: hJonny Winchester Interpretating Date/Time 08/08/2017 13:47:56
--- NOTE | 2017-08-08 13:53 | EKG ---
Date Performed: 08/07/2017 Time Performed: 20:27:32 PTAGE: 56 years EKG: Sinus rhythm WITH OCCASIONAL SUPRAVENTRICULAR PREMATURE COMPLEXES BORDERLINE ECG PREVIOUS TRACING : 08/07/2017 14.29 Since previous tracing, no significant change noted DOCTOR: Jhonny Winchester Interpretating Date/Time 08/08/2017 13:52:26
--- NOTE | 2017-08-08 13:58 | EKG ---
Date Performed: 08/07/2017 Time Performed: 14:29:08 PTAGE: 56 years EKG: Sinus rhythm NORMAL ECG PREVIOUS TRACING : 01/15/2017 21.43 Since previous tracing, no significant change noted DOCTOR: Jhonny Winchester Interpretating Date/Time 08/08/2017 13:56:51
--- NOTE | 2017-08-13 07:31 | TR ---
Date Performed: 08/08/2017 Time Performed: 10:20:06 DOCTOR: Jhonny Winchester DRUG LIST: CLINICAL HISTORY: CHEST PAIN REASON FOR TEST: Chest pain REASON FOR ENDING: Completed Protocol OBSERVATION: Arrhythmia: None Chest Pain: None CONCLUSION: Patient tolerated MANUELITO protocol with Total Exercise Time=6:39 Maximum MU=217 % Max HR Achieved=86.0% Maximum EE=692/72, Patient asymptomatic during testing, testing stopped secondary t o goals acheived, During peak exercise patient had upsloing ST segments. HR and BP appropriate respon se to exercise, Recovery period, HR and BP returned to baseline COMMENTS: Conclusion: Normal treadmill exercise. No evidence of ischemia.
== END 2017-08-08 13:10 | disposition home or self-care (01) ==
LOC: PHED 13:56 → PHEDA 16:06 → PHICU 17:04 → PH5A 17:04
PROVIDERS: ADMIT Hospitalist; ATTEND Hospitalist
DX: R07.9 Chest pain, unspecified (principal); I16.0 Hypertensive urgency; I10 Essential (primary) hypertension; R94.31 Abnormal electrocardiogram [ECG] [EKG]; Z82.49 Family history of ischemic heart disease and other diseases of the circulatory system
CPT/HCPCS: 71010; 80048; 80053; 80061; 82550; 83735; 84484; 85025; 85610; 85730; 93005; 93017; 99285; G0378